=== PATIENT | male | born 1950 | race African-American/Black ===

== ENCOUNTER 2019-01-30 18:35 | Emergency (ER) | payer MEDICARE, OTHER ==
[~2019-01-30] VITALS: Ht 175.3 cm; Wt 111.6 kg
[~2019-01-30 18:35] MED LIST: ACET325T9 PO; ASCO500T2 PO; ASPI-630 PO; ATOR40TA59 PO; CARV25TA PO; CARV6.2541 PO; CEPH-264 PO; CHOL10003 PO; CITA10TA8 PO; CITA20TA6 PO; CLIN300C8 PO; CLON0.25 PO; CLON0.5T PO; DESV100T PO; DESV50TA PO; DIVA500T2 PO; DONE10TA14 PO; DONE10TA61 PO; HYDR-1179 PO; HYDR-3165 PO; INSU100C4 SQ; INSU100V8 SQ; KRIL500C PO; LEVE500T6 PO; LIPITOR80 MG PO; LISI-334 PO; LISI2.5T PO; MECL12.5 PO; MEMA10TA PO; MEMA14CA PO; MEMA28CA PO; MOXI3DRO18 LEFTEYE; MULT-208 PO; NEPA1.7D LEFTEYE; NIAC500T82 PO; NITR0.4T22 SL; NITR50IN IV; OMEG1CAP16 PO; PRED5DRO16 LEFT EAR; PREG150C PO; PREG75CA PO; QUET100T4 PO; QUET300T5 PO; QUET300T7 PO; RANO500T2 PO; SILD20TA2 PO; SILD50TA PO; TRIA1CAP3 PO; TRIA1TAB2 PO; ZOLP10TA4 PO; ZOLP5TAB PO
--- NOTE | 2019-01-30 18:39 | ED.ADGEN ---
Past History Past Medical History: Arthritis, CAD, Cancer, COPD, Depression, Diabetes, High Cholesterol, Hypertension, Migraines, Renal Disease, Seizure, Other Past Surgical History: Cancer Surgery, TURP, Other Smoking: Non-smoker Alcohol Use: None Drug Use: None Adult General Chief Complaint Chief Complaint ".. My legs are bothering to me.. they are swollen... and hurting.. different than my peripheral neuropathy pain.. this leg on Rt. is much more painful.. It just started this morning.. " HPI HPI Patient is a 68 year old male who presents with above hx and complaints leg edema and pain. Patient has known peripheral vascular disease and diabetic peripheral neuropathy. Patient states the pain he's feeling in his legs particularly on the right is not the typical peripheral neuropathy pain he has with his diabetes. Patient states onset of his pain was this morning as persisted throughout the day. Patient also noticed increased edema in both ankles and feet. No obvious infection. Patient does not ever walk perforated always wears she is in the house and outside. Patient denies any trauma. No recent travel or specific ill contacts. Patient then reported compliant with his diabetic, hypertension, and COPD meds. Patient does state water pill.?? Patient denies any history of DVT or coagulopathy. Pt. normally follows with Dr. Solares. Review of Systems Review of Systems Constitutional: Denies fever or chills [] Eyes: Denies change in visual acuity, redness, or eye pain [] HENT: Denies nasal congestion or sore throat [] Respiratory: Denies cough or shortness of breath [] Cardiovascular: No additional information not addressed in HPI [] GI: Denies abdominal pain, nausea, vomiting, bloody stools or diarrhea [] : Denies dysuria or hematuria [] Musculoskeletal: Chronic fibromyalgia pain. Chronic low back pain. And sciatica ,But complains of new pain in his legs and particularly right leg. Integument: Denies rash or skin lesions [] Neurologic: Denies headache, focal weakness or sensory changes [] Endocrine: Denies polyuria or polydipsia [] All other systems were reviewed and found to be within normal limits, except as documented in this note. Family History Family History Diabetes and hypertension Current Medications Current Medications Current Medications Medications (Trade) Dose Ordered Sig/Ena Start Time Stop Time Status Last Admin Dose Admin Aspirin (Children'S Aspirin) 324 mg 1X ONCE 01/30/19 19:30 01/30/19 19:31 DC 01/30/19 19:40 324 MG Enoxaparin Sodium (Lovenox 100mg Syringe) 100 mg 1X ONCE 01/30/19 19:30 01/30/19 19:31 DC 01/30/19 19:41 100 MG Enoxaparin Sodium (Lovenox 60mg Syringe) 60 mg 1X ONCE 01/30/19 21:45 01/30/19 21:46 DC 01/30/19 22:36 60 MG Furosemide (Lasix) 20 mg 1X ONCE 01/30/19 21:45 01/30/19 21:46 DC 01/30/19 22:39 20 MG Ketorolac Tromethamine (Toradol 30mg Vial) 30 mg 1X ONCE 01/30/19 21:45 01/30/19 21:46 DC 01/30/19 22:36 30 MG Allergies Allergies Allergies Coded Allergies Type Severity Reaction Last Updated Verified iodine Allergy Severe 01/06/14 Yes Penicillins Allergy Unknown 12/24/13 No Sulfa (Sulfonamide Antibiotics) Allergy Unknown 12/24/13 No shellfish derived Allergy Unknown 12/24/13 No Physical Exam Physical Exam Constitutional: Moderate acute distress, non-toxic appearance. [] HENT: Normocephalic, atraumatic, bilateral external ears normal, oropharynx moist, no oral exudates, nose normal. [] Eyes: PERRLA, EOMI, conjunctiva normal, no discharge. [] Neck: Normal range of motion, no tenderness, supple, no stridor. [] Cardiovascular:Heart rate regular rhythm, no murmur PMI to the left Lungs & Thorax: Bilateral breath sounds equal apex with scattered wheezes auscultation [] Abdomen: Bowel sounds normal, soft, no tenderness, no masses, no pulsatile masses. []Obese. Skin: Warm, dry, no erythema, no rash. [] Capillary refill decrease in both feet. 3 Seconds. Pt does have pedal pulses Back: No tenderness, no CVA tenderness. [] Old surgery scar Extremities: Bilateral feet and lower leg tenderness, no cyanosis, no clubbing, ROM intact, bilateral lower leg ankle and calf edema. [] Pain does follows lower vein course in rt calf. Neurologic: Alert and oriented X 3, moves all ext. on request, does walk with cane, distal sensory function, decreased plantar sensation, no new gross focal deficits noted. [] Psychologic: Affect anxious, judgement normal, mood normal. [] Current Patient Data Vital Signs Vital Signs Date Time Temp Pulse Resp B/P (MAP) Pulse Ox O2 Delivery O2 Flow Rate FiO2 01/30/19 22:49 78 16 165/97 (119) 96 Room Air 01/30/19 19:05 98.3 Lab Results Laboratory Tests Test 01/30/19 19:20 01/30/19 19:36 01/30/19 22:50 Urine Collection Type Unknown Urine Color Yellow Urine Clarity Clear Urine pH 7.0 Urine Specific [place] 1.020 Urine Protein Neg (NEG-TRACE) Urine Glucose (UA) 250 mg/dL (NEG) Urine Ketones (Stick) Neg mg/dL (NEG) Urine Blood Small (NEG) Urine Nitrite Neg (NEG) Urine Bilirubin Neg (NEG) Urine Urobilinogen Dipstick 4 mg/dL (0.2 mg/dL) Urine Leukocyte Esterase Neg (NEG) Urine RBC 3-5 /HPF (0-2) Urine WBC 1-4 /HPF (0-4) Urine Squamous Epithelial Cells Occ /LPF Urine Bacteria 0 /HPF (0-FEW) Urine Mucus Slight /LPF Urine Opiates Screen Neg (NEG) Urine Methadone Screen Neg (NEG) Urine Barbiturates Neg (NEG) Urine Phencyclidine Screen Neg (NEG) Urine Amphetamine/Methamphetamine Neg (NEG) Urine Benzodiazepines Screen Neg (NEG) Urine Cocaine Screen Neg (NEG) Urine Cannabinoids Screen Neg (NEG) Urine Ethyl Alcohol Neg (NEG) White Blood Count 6.3 x10^3/uL (4.0-11.0) Red Blood Count 4.29 x10^6/uL (4.30-5.70) L Hemoglobin 14.2 g/dL (13.0-17.5) Hematocrit 43.7 % (39.0-53.0) Mean Corpuscular Volume 102 fL (79-100) H Mean Corpuscular Hemoglobin 33 pg (25-35) Mean Corpuscular Hemoglobin Concent 33 g/dL (31-37) Red Cell Distribution Width 14.0 % (11.5-14.5) Platelet Count 251 x10^3/uL (140-400) Neutrophils (%) (Auto) 60 % (31-73) Lymphocytes (%) (Auto) 30 % (24-48) Monocytes (%) (Auto) 8 % (0-9) Eosinophils (%) (Auto) 2 % (0-3) Basophils (%) (Auto) 0 % (0-3) Neutrophils # (Auto) 3.8 x10^3uL (1.8-7.7) Lymphocytes # (Auto) 1.9 x10^3/uL (1.0-4.8) Monocytes # (Auto) 0.5 x10^3/uL (0.0-1.1) Eosinophils # (Auto) 0.1 x10^3/uL (0.0-0.7) Basophils # (Auto) 0.0 x10^3/uL (0.0-0.2) Prothrombin Time 11.7 SEC (9.4-11.4) H Prothrombin Time INR 1.1 (0.9-1.1) PTT 24 SEC (23-33) D-Dimer (Rachell) 0.79 mg/L (0.00-0.50) H Sodium Level 139 mmol/L (136-145) Potassium Level 3.8 mmol/L (3.5-5.1) Chloride Level 104 mmol/L (98-107) Carbon Dioxide Level 26 mmol/L (21-32) Anion Gap 9 (6-14) Blood Urea Nitrogen 11 mg/dL (8-26) Creatinine 1.2 mg/dL (0.7-1.3) Estimated GFR (Cockcroft-Gault) 72.9 Glucose Level 162 mg/dL (70-99) H Calcium Level 8.8 mg/dL (8.5-10.1) Magnesium Level 2.0 mg/dL (1.8-2.4) Total Bilirubin 0.4 mg/dL (0.2-1.0) Direct Bilirubin 0.1 mg/dL (0.0-0.2) Aspartate Amino Transferase (AST) 12 U/L (15-37) L Alanine Aminotransferase (ALT) 23 U/L (16-63) Alkaline Phosphatase 63 U/L (46-116) Creatine Kinase 79 U/L (39-308) Creatine Kinase MB (Mass) < 0.5 ng/mL (0.0-3.6) Creatine Kinase MB Relative Index 0.6 % (0-4) Troponin I Quantitative < 0.017 ng/mL (0-0.055) < 0.017 ng/mL (0-0.055) RA-Tve-A-Type Natriuretic Peptide 180 pg/mL (0-124) H Total Protein 7.8 g/dL (6.4-8.2) Albumin 3.7 g/dL (3.4-5.0) Lipase 182 U/L (73-393) EKG EKG My interpretation EKG shows a sinus rhythm at 76 bpm. Does have occasional premature atrial contraction. Has left ventricular hypertrophic changes. Some nonspecific anterior lateral changes. No findings of acute STEMI of contra lateral changes.[] No interval changes on repeat EKG Radiology/Procedures Radiology/Procedures [address] [address] IMAGING REPORT Signed PATIENT: HECTOR ESQUIVEL ACCOUNT: [id number] : 1950 LOCATION: ER AGE: 68 SEX: M EXAM STATUS: REG ER ORD. PHYSICIAN: JUAN PABLO MERCER MD REASON: increase edema and pain- PROCEDURE: VENOUS LOWER EXT BILATERAL Bilateral lower extremity venous ultrasound, : History: Bilateral lower extremity swelling, CHF, renal disease Sonographic evaluation including grayscale, color flow and spectral Doppler analysis of the deep veins of the lower extremities was performed. The femoral and popliteal veins demonstrate normal compressibility and normal responses to distal augmentation maneuvers. Color imaging of those vessels shows no evidence of intraluminal clot. The visualized deep veins in both calves are patent. IMPRESSION: There is no sonographic evidence of deep vein thrombosis in either lower extremity. Electronically signed by: Ward Ewing MD (01/30/2019 8:46 PM) [facility] DICTATED AND SIGNED BY: WARD EWING MD DATE: 01/30/192045 CC: JUAN PABLO MERECR MD; RAJANI REBOLLEDO MD ~ [][address] [address] IMAGING REPORT Signed PATIENT: HECTOR ESQUIVEL ACCOUNT: [id number] : 1950 LOCATION: ER AGE: 68 SEX: M EXAM STATUS: REG ER ORD. PHYSICIAN: JUAN PABLO MERCER MD REASON: Extremity swelling, CHF, COPD PROCEDURE: PORTABLE CHEST 1V AP chest. HISTORY: Extremity swelling, CHF, COPD AP view was taken of the chest. Lungs are clear. Heart is normal in size. There is an old left rib fracture. There is no effusion. IMPRESSION: 1. No acute chest disease. Electronically signed by: Ward Ewing MD (01/30/2019 7:53 PM) [facility] DICTATED AND SIGNED BY: WARD EWING MD DATE: 01/30/191952 CC: JUAN PABLO MERCER MD; RAJANI REBOLLEDO MD ~ Course & Med Decision Making Course & Med Decision Making Pertinent Labs and Imaging studies reviewed. (See chart for details) I still have concerns for a DVT in spite of a negative ultrasound. Will cover for DVT with Lovenox next 24 hours and initiate Eliquis 5 mg twice day. Patient follow-up primary care. Consider repeat ultrasound after 24-48 hours. Patient return if any concerns. Consider Arterial study on repeat US study in 24 hrs. - 48 hrs. Pt. to return if any concerns. [] Final Impression Final Impression 1. Leg Pain and Edema[] 2. DM gluc. 162 3. Macrocytic Indice 102 4. Elevated D-dimer 0.79 5. Peripheral Neuropathy 6. Peripheral Vascular Dz Dragon Disclaimer Dragon Disclaimer This electronic medical record was generated, in whole or in part, using a voice recognition dictation system. Discharge Summary Visit Information Final Diagnosis Problems Medical Problems: (1) Leg edema Status: Acute Brief Hospital Course Allergies Allergies Coded Allergies Type Severity Reaction Last Updated Verified iodine Allergy Severe 01/06/14 Yes Penicillins Allergy Unknown 12/24/13 No Sulfa (Sulfonamide Antibiotics) Allergy Unknown 12/24/13 No shellfish derived Allergy Unknown 12/24/13 No Vital Signs Vital Signs Date Time Temp Pulse Resp B/P (MAP) Pulse Ox O2 Delivery O2 Flow Rate FiO2 01/30/19 22:49 78 16 165/97 (119) 96 Room Air 01/30/19 19:05 98.3 Lab Results Laboratory Tests Test 01/30/19 19:20 01/30/19 19:36 01/30/19 22:50 Urine Collection Type Unknown Urine Color Yellow Urine Clarity Clear Urine pH 7.0 Urine Specific [place] 1.020 Urine Protein Neg (NEG-TRACE) Urine Glucose (UA) 250 mg/dL (NEG) Urine Ketones (Stick) Neg mg/dL (NEG) Urine Blood Small (NEG) Urine Nitrite Neg (NEG) Urine Bilirubin Neg (NEG) Urine Urobilinogen Dipstick 4 mg/dL (0.2 mg/dL) Urine Leukocyte Esterase Neg (NEG) Urine RBC 3-5 /HPF (0-2) Urine WBC 1-4 /HPF (0-4) Urine Squamous Epithelial Cells Occ /LPF Urine Bacteria 0 /HPF (0-FEW) Urine Mucus Slight /LPF Urine Opiates Screen Neg (NEG) Urine Methadone Screen Neg (NEG) Urine Barbiturates Neg (NEG) Urine Phencyclidine Screen Neg (NEG) Urine Amphetamine/Methamphetamine Neg (NEG) Urine Benzodiazepines Screen Neg (NEG) Urine Cocaine Screen Neg (NEG) Urine Cannabinoids Screen Neg (NEG) Urine Ethyl Alcohol Neg (NEG) White Blood Count 6.3 x10^3/uL (4.0-11.0) Red Blood Count 4.29 x10^6/uL (4.30-5.70) Hemoglobin 14.2 g/dL (13.0-17.5) Hematocrit 43.7 % (39.0-53.0) Mean Corpuscular Volume 102 fL (79-100) Mean Corpuscular Hemoglobin 33 pg (25-35) Mean Corpuscular Hemoglobin Concent 33 g/dL (31-37) Red Cell Distribution Width 14.0 % (11.5-14.5) Platelet Count 251 x10^3/uL (140-400) Neutrophils (%) (Auto) 60 % (31-73) Lymphocytes (%) (Auto) 30 % (24-48) Monocytes (%) (Auto) 8 % (0-9) Eosinophils (%) (Auto) 2 % (0-3) Basophils (%) (Auto) 0 % (0-3) Neutrophils # (Auto) 3.8 x10^3uL (1.8-7.7) Lymphocytes # (Auto) 1.9 x10^3/uL (1.0-4.8) Monocytes # (Auto) 0.5 x10^3/uL (0.0-1.1) Eosinophils # (Auto) 0.1 x10^3/uL (0.0-0.7) Basophils # (Auto) 0.0 x10^3/uL (0.0-0.2) Prothrombin Time 11.7 SEC (9.4-11.4) Prothromb Time International Ratio 1.1 (0.9-1.1) Activated Partial Thromboplast Time 24 SEC (23-33) D-Dimer (Rachell) 0.79 mg/L (0.00-0.50) Sodium Level 139 mmol/L (136-145) Potassium Level 3.8 mmol/L (3.5-5.1) Chloride Level 104 mmol/L (98-107) Carbon Dioxide Level 26 mmol/L (21-32) Anion Gap 9 (6-14) Blood Urea Nitrogen 11 mg/dL (8-26) Creatinine 1.2 mg/dL (0.7-1.3) Estimated GFR (Cockcroft-Gault) 72.9 Glucose Level 162 mg/dL (70-99) Calcium Level 8.8 mg/dL (8.5-10.1) Magnesium Level 2.0 mg/dL (1.8-2.4) Total Bilirubin 0.4 mg/dL (0.2-1.0) Direct Bilirubin 0.1 mg/dL (0.0-0.2) Aspartate Amino Transf (AST/SGOT) 12 U/L (15-37) Alanine Aminotransferase (ALT/SGPT) 23 U/L (16-63) Alkaline Phosphatase 63 U/L (46-116) Creatine Kinase 79 U/L (39-308) Creatine Kinase MB (Mass) < 0.5 ng/mL (0.0-3.6) Creatine Kinase MB Relative Index 0.6 % (0-4) Troponin I Quantitative < 0.017 ng/mL (0-0.055) < 0.017 ng/mL (0-0.055) KD-Jjs-L-Type Natriuretic Peptide 180 pg/mL (0-124) Total Protein 7.8 g/dL (6.4-8.2) Albumin 3.7 g/dL (3.4-5.0) Lipase 182 U/L (73-393) Brief Hospital Course Mr. Esquivel is a 68 old male who presented with bilateral lower leg pain, edema. Pain more on Rt. . No DVT found on tonight US. Consider Repeat US and arterial Doppler study after 24-48 hours. Discharge Information Condition at Discharge: Improved, Stable Disposition/Orders: D/C to Home Dischare Medications Current Medications Aspirin (Children'S Aspirin) 324 mg 1X ONCE PO Last administered on 01/30/19at 19:40; Admin Dose 324 MG; Start 01/30/19 at 19:30; Stop 01/30/19 at 19:31; Status DC Furosemide (Lasix) 20 mg 1X ONCE IV ; Start 01/30/19 at 19:30; Stop 01/30/19 at 19:30; Status DC Enoxaparin Sodium (Lovenox 100mg Syringe) 100 mg 1X ONCE SQ Last administered on 01/30/19at 19:41; Admin Dose 100 MG; Start 01/30/19 at 19:30; Stop 01/30/19 at 19:31; Status DC Furosemide (Lasix) 20 mg 1X ONCE IVP Last administered on 01/30/19at 19:42; Admin Dose 20 MG; Start 01/30/19 at 19:30; Stop 01/30/19 at 19:31; Status DC Ketorolac Tromethamine (Toradol 30mg Vial) 30 mg 1X ONCE IV Last administered on 01/30/19at 22:36; Admin Dose 30 MG; Start 01/30/19 at 21:45; Stop 01/30/19 at 21:46; Status DC Enoxaparin Sodium (Lovenox 60mg Syringe) 60 mg 1X ONCE SQ Last administered on 01/30/19at 22:36; Admin Dose 60 MG; Start 01/30/19 at 21:45; Stop 01/30/19 at 21:46; Status DC Furosemide (Lasix) 20 mg 1X ONCE IVP Last administered on 01/30/19at 22:39; Admin Dose 20 MG; Start 01/30/19 at 21:45; Stop 01/30/19 at 21:46; Status DC Active Scripts Active Eliquis (Apixaban) 5 Mg Tablet 5 Mg PO BID 30 Days Hydrocodone-Ibuprofen 7.5-200 (Hydrocodone/Ibuprofen) 1 Each Tablet 1 Tab PO PRN Q6HRS PRN Clindamycin Hcl 300 Mg Capsule 1 Cap PO TID Depakote (Divalproex Sodium) 500 Mg Tablet. 1 Tab PO BID Hydrocodone-Ibuprofen 7.5-200 (Hydrocodone/Ibuprofen) 1 Each Tablet 30 Tab PO PRN Q6HRS PRN [place] 5-325 Tablet (Hydrocodone Bit/Acetaminophen) 1 Each Tablet 1 Tab PO PRN Q6HRS PRN Reported Ilevro (Nepafenac) 1.7 Ml Drops.susp 1 Drop LEFTEYE DAILY use daily for a total of 3 weeks Prednisolone Acetate 5 Ml Drops.susp 1 Drop LEFT EAR TID use 2 x today then starting tomorrow 3 x daily till gone Vigamox (Moxifloxacin Hcl) 3 Ml Drops 1 Drop LEFTEYE TID use 2 x today then starting tomorrow 3 x daily till gone Lyrica (Pregabalin) 75 Mg Capsule 1 Cap PO BID Namenda Xr (Memantine Hcl) 28 Mg Cap.spr.24 28 Mg PO Vitamin D3 (Cholecalciferol (Vitamin D3)) 1,000 Unit Tablet 2 Tab PO DAILY Tylenol (Acetaminophen) 325 Mg Tablet 1-2 Tab PO QID Vitamin C (Ascorbic Acid) 500 Mg Tablet 500 Mg PO Pristiq Er (Desvenlafaxine Succinate) 100 Mg Tab.er.24h 1 Tab PO DAILY Klonopin (Clonazepam) 0.5 Mg Tablet 0.5 Mg PO PRN PRN Ambien (Zolpidem Tartrate) 5 Mg Tablet 1 Tab PO QHS PRN Viagra (Sildenafil Citrate) 50 Mg Tablet 1 Tab PO UD Lipitor (Atorvastatin Calcium) 80 Mg Tablet 1 Tab PO DAILY Multi-Day Vitamins (Multivitamin) 1 Each Tablet 1 Tab PO DAILY Levetiracetam 500 Mg Tablet 1 Tab PO BID Lantus (Insulin Glargine,Hum.rec.anlog) 100 Unit/1 Ml Vial 20 Unit SQ HS LAST DOSE; 01/07 AT 9 PM NEXT DOSE; 01/08 AT 9 PM Novolog (Insulin Aspart) 100 Unit/1 Ml Cartridge 10 Unit SQ TIDAC LAST DOSE; 01/08 AT 0900 NEXT DOSE; 01/08 AT 1200 Fish Oil 1,000 Mg Softgel ([place]-3 Fatty Acids/Fish Oil) 1 Each Capsule 1 Each PO DAILY LAST DOSE; 01/08 AT 9 AM NEXT DOSE; 01/09 AT 9 AM NITROGLYCERIN SubLingual (Nitroglycerin) 0.4 Mg Tab.subl 0.4 Mg SL PRN Q5MIN PRN LAST DOSE; NEXT DOSE; IF NEEDED Vitamin C (Ascorbic Acid) 500 Mg Tablet 500 Mg PO DAILY LAST DOSE; 01/08 AT 9 AM NEXT DOSE; 01/08 AT 9 AM Aricept (Donepezil Hcl) 10 Mg Tablet 10 Mg PO DAILY LAST DOSE; 01/08 AT 9 AM NEXT DOSE; 01/09 AT 9 AM Niacin Er (Niacin) 500 Mg Tab.er.24h 1,000 Mg PO DAILY LAST DOSE; 01/08 AT 9 AM NEXT DOSE; 01/09 AT 9 AM Aspirin 81 Mg Tab.chew 81 Mg PO DAILY LAST DOSE; 01/08 AT 9 AM NEXT DOSE; 01/08 AT 9 AM Ranexa (Ranolazine) 500 Mg Tab.er.12h 1,000 Mg PO BID LAST DOSE; 01/08 AT 8AM NEXT DOSE; 01/08 AT Bedtime Citalopram Hbr (Citalopram Hydrobromide) 20 Mg Tablet 40 Mg PO LAST DOSE; 01/08 AT 9 AM NEXT DOSE; 01/09 AT 9 AM Yoandy Disclaimer This chart was dictated in whole or in part using Voice Recognition software in a busy, high-work load, and often noisy Emergency Department environment. It may contain unintended and wholly unrecognized errors or omissions. JUAN PABLO MERCER MD Jan 30, 2019 18:39
[2019-01-30] MEDS ORDERED: ASPIRIN 81 MG TAB.CHEW PO ONE (19:30)
[2019-01-30] MEDS ORDERED: FUROSEMIDE 20 MG/2 ML VIAL IV ONE (19:30)
[2019-01-30] MEDS ORDERED: ENOXAPARIN ** NOTE DOSE ** SYRINGE SQ ONE ×2 (19:30→21:45)
[2019-01-30] MEDS ORDERED: FUROSEMIDE 40 MG/4 ML VIAL IVP ONE ×2 (19:30→21:45)
--- NOTE | 2019-01-30 19:56 | RAD ---
AP chest. HISTORY: Extremity swelling, CHF, COPD AP view was taken of the chest. Lungs are clear. Heart is normal in size. There is an old left rib fracture. There is no effusion. IMPRESSION: 1. No acute chest disease. Electronically signed by: Ward Ewing MD (01/30/2019 7:53 PM) [facility]
[2019-01-30 19:57] LABS: BASO % 0 % (0-3); EOS # 0.1 x10^3/uL (0.0-0.7); EOS % 2 % (0-3); HEMATOCRIT 43.7 % (39.0-53.0); HEMOGLOBIN 14.2 g/dL (13.0-17.5); LYMPH # 1.9 x10^3/uL (1.0-4.8); LYMPH % 30 % (24-48); MEAN CORPUSCULAR HEMOGLOBIN 33 pg (25-35); MEAN CORPUSCULAR HGB CONC 33 g/dL (31-37); MEAN CORPUSCULAR VOLUME 102 fL (79-100); MONO # 0.5 x10^3/uL (0.0-1.1); MONO % 8 % (0-9); NEUT # 3.8 x10^3uL (1.8-7.7); NEUT % 60 % (31-73); PLATELET COUNT 251 x10^3/uL (140-400); RED BLOOD COUNT 4.29 x10^6/uL (4.30-5.70); WHITE BLOOD COUNT 6.3 x10^3/uL (4.0-11.0)
[2019-01-30 20:20] LABS: ALBUMIN 3.7 g/dL (3.4-5.0); ALK PHOS 63 U/L (46-116); ALT (SGPT) 23 U/L (16-63); ANION GAP 9 (6-14); AST (SGOT) 12 U/L (15-37); BLOOD UREA NITROGEN 11 mg/dL (8-26); CALCIUM 8.8 mg/dL (8.5-10.1); CARBON DIOXIDE 26 mmol/L (21-32); CHLORIDE 104 mmol/L (98-107); CREATININE 1.2 mg/dL (0.7-1.3); DIRECT BILIRUBIN 0.1 mg/dL (0.0-0.2); GFR 72.9; GLUCOSE 162 mg/dL (70-99); LIPASE 182 U/L (73-393); POTASSIUM 3.8 mmol/L (3.5-5.1); SODIUM 139 mmol/L (136-145); TOTAL BILIRUBIN 0.4 mg/dL (0.2-1.0); TOTAL PROTEIN 7.8 g/dL (6.4-8.2)
[2019-01-30 20:39] LABS: AMPHETAMINE/METHAMPHETAMINE NEG (NEG); BARBITURATES NEG (NEG); BENZODIAZEPINES NEG (NEG); CANNABINOIDS NEG (NEG); COCAINE NEG (NEG); METHADONE NEG (NEG); OPIATES NEG (NEG); PHENCYCLIDINE NEG (NEG)
--- NOTE | 2019-01-30 20:49 | RAD ---
Bilateral lower extremity venous ultrasound, : History: Bilateral lower extremity swelling, CHF, renal disease Sonographic evaluation including grayscale, color flow and spectral Doppler analysis of the deep veins of the lower extremities was performed. The femoral and popliteal veins demonstrate normal compressibility and normal responses to distal augmentation maneuvers. Color imaging of those vessels shows no evidence of intraluminal clot. The visualized deep veins in both calves are patent. IMPRESSION: There is no sonographic evidence of deep vein thrombosis in either lower extremity. Electronically signed by: Ward Ewing MD (01/30/2019 8:46 PM) [facility]
[2019-01-30 20:51] LABS: BACTERIA,URINE 0 /HPF (0-FEW); BILIRUBIN,URINE NEG (NEG); CLARITY,URINE CLEAR; COLOR,URINE YELLOW; GLUCOSE,URINE 250 mg/dL (NEG); NITRITE,URINE NEG (NEG); SQUAMOUS EPITHELIAL CELL,UR OCC /LPF; UROBILINOGEN,URINE 4 mg/dL (0.2 mg/dL)
[2019-01-30] MEDS ORDERED: HYDR-1179 PO (21:16)
[2019-01-30] MEDS ORDERED: APIX5TAB3 PO (21:16)
[2019-01-30] MEDS ORDERED: KETOROLAC 30 MG/ML VIAL. IV ONE (21:45)
[2019-01-30 23:45] VITALS: BP 155/83
[2019-02-01 00:10] LABS: HEMOGLOBIN A1C 7.5 % (4.8-5.6)
== END 2019-01-30 23:45 | disposition home or self-care (01) ==
LOC: ER 18:35
DX: R60.0 Localized edema (principal); M79.604 Pain in right leg; E11.42 Type 2 diabetes mellitus with diabetic polyneuropathy; I73.9 Peripheral vascular disease, unspecified; R79.1 Abnormal coagulation profile; D53.9 Nutritional anemia, unspecified; M19.90 Unspecified osteoarthritis, unspecified site; I25.10 Atherosclerotic heart disease of native coronary artery without angina pectoris; J44.9 Chronic obstructive pulmonary disease, unspecified; E78.00 Pure hypercholesterolemia, unspecified; I10 Essential (primary) hypertension; G43.909 Migraine, unspecified, not intractable, without status migrainosus; I12.9 Hypertensive chronic kidney disease with stage 1 through stage 4 chronic kidney disease, or unspecified chronic kidney disease; E11.22 Type 2 diabetes mellitus with diabetic chronic kidney disease; N18.9 Chronic kidney disease, unspecified; Z88.8 Allergy status to other drugs, medicaments and biological substances; Z88.2 Allergy status to sulfonamides; Z88.0 Allergy status to penicillin; Z91.013 Allergy to seafood
CPT/HCPCS: 36415; 71045; 80048; 80076; 80307; 81001; 82553; 83036; 83690; 83735; 83880; 84443; 84484; 85025; 85379; 85610; 85730; 93005; 93970; 96372; 96374; 96375; 96376; 99285; J1650; J1885; J1940

== ENCOUNTER → 2019-02-17 | Outpatient (CLI) | payer MEDICARE, OTHER ==
[2019-01-30 23:45] VITALS: BP 155/83
[~2019-02-17] MED LIST changes: +APIX5TAB3 PO
--- NOTE | 2019-02-17 14:43 | RAD ---
EXAM: Right lower extremity venous Doppler sonogram. HISTORY: Pain. TECHNIQUE: Arroyo scale and color Doppler sonographic evaluation of the right lower extremity veins with spectral waveform analysis was performed. FINDINGS: The right peroneal vein is partially obscured. There is normal color flow, normal compressibility and there are normal spectral waveforms in the remainder of the lower extremity veins. IMPRESSION: No Doppler evidence of lower extremity deep venous thrombosis with limited evaluation of the peroneal vein. Electronically signed by: Rebeka Cole MD (02/17/2019 2:40 PM) [place] [id number]
--- NOTE | 2019-02-17 15:26 | RAD ---
Exam performed: X-ray right foot and right ankle. HISTORY: Pain and swelling. DATE OF SERVICE: 02/17/2019. COMPARISON: None available FINDINGS: Right foot: Normal alignment is preserved. There is no acute fracture or dislocation. There is a small plantar calcaneal spur. Extensive soft tissue swelling is identified. Right ankle: Normal alignment of the ankle mortise is preserved. There is no acute fracture or dislocation. Small plantar calcaneal spur. Extensive soft tissue swelling is noted. IMPRESSION: 1. Diffuse soft tissue swelling around the right foot without underlying acute bony abnormality. 2. Small plantar calcaneal spur. 3. Diffuse soft tissue swelling around the right ankle without underlying acute bony abnormality Electronically signed by: Medina Beck MD (02/17/2019 3:23 PM) [facility]
== END | disposition home or self-care (01) ==
LOC: US 14:07
PROVIDERS: ATTEND Specialist
DX: M77.31 Calcaneal spur, right foot (principal); M79.89 Other specified soft tissue disorders
CPT/HCPCS: 73610; 73630; 93971

== ENCOUNTER 2020-04-24 22:36 | Emergency (ER) | payer MEDICARE, OTHER ==
[~2020-04-24] VITALS: Ht 177.8 cm; Wt 118.2 kg
[~2020-04-24 22:36] MED LIST changes: -ASCO500T2 PO; +ASCO500T4 PO
[2020-04-24 22:45] VITALS: BP 135/71
--- NOTE | 2020-04-24 22:47 | PHYS DOC ---
Past History Past Medical History: Arthritis, CAD, Cancer, CHF, COPD, Depression, Diabetes, High Cholesterol, Hypertension, Migraines, Renal Disease, Seizure, Other Past Surgical History: Cancer Surgery, TURP, Other Smoking: Non-smoker Alcohol Use: Occasionally Drug Use: None General Adult HPI: HPI: ".. They sent me in to get check out.. I was up going to bathroom... yesterday.. and I tripped and hit my forehead on the table.... It did nt knock me out.. but did stun me.. but.. my family all over my case to come and get check out.. they all think I got COVID.. and want me to get re tested.. I ve like had 3 COVID tests.. they have been all negative.. I did have some fevers.. and I do have a little cough.. but I always cough.. it my COPD.. yes.. I am still smoking.. I just here to make everyone happy.. :' I think they just want me out of their hair.. " Patient is a 69 year old male who presents with above hx and complaints fever, cough with dyspnea. Hx fall yesterday and hit fore head yesterday. No history of loss of consciousness. Has been ambulatory since the fall. Patient does admit to having subjective fevers, cough and malaise. Patient denies any specific COVID contacts. No recent travel outside the [place] area. Advice he has had prior COVID testing with all been negative. Patient has past history of episodes of hypertension, chronic renal failure, dehydration, diabetes, dementia, Hodgkin's Lymphoma, , dental abscess, esophageal strictures, hypertension tension, DVTs, pulmonary embolisms, pneumonia, COPD , noncompliant with medical regimens, depression with multiple suicide attempts. Patient still smokes tobacco.. Patient advised he is not on any current anticoagulation. Pt. currently following Dr. Jasso. Review of Systems: Review of Systems: Constitutional: Hx of fever Eyes: Denies change in visual acuity HENT: Denies nasal congestion or sore throat . Hx Head Injury yesterday Respiratory: Hx of cough and shortness of breath Cardiovascular: Denies chest pain or edema GI: Denies abdominal pain, nausea, vomiting, bloody stools or diarrhea : Denies dysuria Musculoskeletal: Denies back pain or joint pain Integument: Denies rash Neurologic: Denies headache, focal weakness or sensory changes Endocrine: Denies polyuria or polydipsia Lymphatic: Denies swollen glands Psychiatric: Denies depression or anxiety Heart Score: HEART Score for Chest Pain: HEART Score for Chest Pain Response (Comments) Value History Moderately Suspicious 1 ECG Nonspecific Repolarizatio 1 Age > 65 2 Risk Factors 1 or 2 Risk Factors 1 Troponin < Normal Limit 0 Total 5 Risk Factors: Risk Factors: DM, Current or recent (<one month) smoker, HTN, HLP, family history of CAD, obesity. Risk Scores: Score 0 - 3: 2.5% MACE over next 6 weeks - Discharge Home Score 4 - 6: 20.3% MACE over next 6 weeks - Admit for Clinical Observation Score 7 - 10: 72.7% MACE over next 6 weeks - Early Invasive Strategies Family History: Family History: Noncontributory to presentation Current Medications: Current Meds: See nursing for home meds Allergies: Allergies: Allergies Coded Allergies Type Severity Reaction Last Updated Verified iodine Allergy Severe 01/06/14 Yes Penicillins Allergy Unknown 12/24/13 No Sulfa (Sulfonamide Antibiotics) Allergy Unknown 12/24/13 No shellfish derived Allergy Unknown 12/24/13 No Physical Exam: PE: Constitutional: no acute distress, non-toxic appearance. [] HENT: Normocephalic, contusion left forehead, bilateral external ears normal, oropharynx moist, no oral exudates, nose normal. [] Eyes: PERRLA, EOMI, conjunctiva normal, no discharge. [] Neck: Normal range of motion, mild cervical tenderness, supple, no stridor. [] Cardiovascular: Tachycardia heart rate regular rhythm, no murmur [], PMI to the left Lungs & Thorax: Bilateral breath sounds equal at apex with scattered wheezing throughout on auscultation [] old surgery port scars Abdomen: Bowel sounds normal, soft, no tenderness, no masses, no pulsatile masses. Obese. Old surgical scars Skin: Warm, dry, no erythema, no rash. Poor turgor. Back: No tenderness, no CVA tenderness. [] Extremities: No tenderness, no cyanosis, no clubbing, ROM intact, bilateral ankle edema. [] No cording appreciated Neurologic: Alert and oriented X 3, moves all extremities on request, does have distal sensory, no focal deficits noted. [] Psychologic: Affect flat, judgement normal, mood normal. Denies suicidal or homicidal ideation. Does admit that he sometimes gets depressed EKG: EK interpretation EKG shows a sinus tachycardia 101 bpm. Does have left atrial possible P waves. Left axis, and nonspecific T wave changes anterior leads. Low voltage in lead II [] Radiology/Procedures: Radiology/Procedures: [address] [address] IMAGING REPORT Signed PATIENT: HECTOR ESQUIVEL ACCOUNT: [id number] : 1950 LOCATION: ER AGE: 69 SEX: M EXAM STATUS: REG ER ORD. PHYSICIAN: JUAN PABLO MERCER MD REASON: dyspnea, fever PROCEDURE: PORTABLE CHEST 1V AP chest x-ray HISTORY: Dyspnea, fever. COMPARISON: Chest x-ray January 30, 2019. FINDINGS: Mild cardiomegaly stable. Mediastinal silhouette is unremarkable. No pneumothorax, pulmonary opacities or pleural effusions. Old healed left rib fracture deformities again demonstrated. IMPRESSION: No acute process. Stable exam. Electronically signed by: Kaylee Mackay MD (04/24/2020 11:53 PM) [facility] DICTATED AND SIGNED BY: KAYLEE MACKAY MD DATE: 04/24/20 607 CC: JUAN PABLO MERCER MD; RAJANI JASSO MD ~ [[address] [address] IMAGING REPORT Signed PATIENT: HECTOR ESQUIVEL ACCOUNT: [id number] : 1950 LOCATION: ER AGE: 69 SEX: M EXAM STATUS: REG ER ORD. PHYSICIAN: JUAN PABLO MERCER MD REASON: fell hit head, syncoe, black out PROCEDURE: CT HEAD AND CERVICAL SPINE WO STUDY: CT head and cervical spine without contrast INDICATION: Fall. Syncope. Trauma to the head. COMPARISON: 08/25/2016 TECHNIQUE: Axial CT imaging through the head and cervical spine without the use of intravenous contrast. Sagittal and coronal reformats were obtained. One or more of the following individualized dose reduction techniques were utilized for this examination: 1. Automated exposure control 2. Adjustment of the mA and/or kV according to patient size 3. Use of iterative reconstruction technique. FINDINGS: CT head: No acute intracranial hemorrhage. Arroyo-white matter differentiation is maintained. No mass effect, midline shift or hydrocephalus. Patchy and confluent bihemispheric subcortical/periventricular white matter hypoattenuation is nonspecific but most frequently seen in the setting of chronic microvascular ischemic change. Parenchymal volume loss and intracranial atherosclerotic calcifications. No large scalp hematoma is apparent by CT. No depressed calvarial fracture. CT cervical spine: Limited evaluation below C5 due to beam attenuation. Taking the above into consideration, no acute fracture or traumatic malalignment. Partial opacification of the left mastoid air cells but no fracture seen in this region. Scattered degenerative changes with discogenic arthrosis most pronounced at C6-C7. Uncovertebral joint hypertrophy greatest at this level as well. Osseous neural foraminal encroachment most notable along the right more so than left at C6-C7. No severe central canal stenosis is readily apparent. No soft tissue sequela of trauma seen throughout the neck. Scattered vascular calcifications. No apical pneumothorax. IMPRESSION: CT head: 1. No acute intracranial abnormality by CT. 2. Chronic/senescent findings as detailed above. CT cervical spine: 1. No acute fracture. 2. Multifactorial degenerative changes greatest at C6-C7. Electronically signed by: CAYLA ROMERO MD (04/24/2020 11:43 PM) [id number] DICTATED AND SIGNED BY: CAYLA ROMERO MD DATE: 04/24/20 0823 CC: JUAN PABLO MERCER MD; RAJANI JASSO MD ~ ][address] [address] IMAGING REPORT Signed PATIENT: HECTOR ESQUIVEL ACCOUNT: [id number] : 1950 LOCATION: ER AGE: 69 SEX: M EXAM STATUS: REG ER ORD. PHYSICIAN: JUAN PABLO MERCER MD REASON: dyspnea, fever PROCEDURE: PORTABLE CHEST 1V AP chest x-ray HISTORY: Dyspnea, fever. COMPARISON: Chest x-ray January 30, 2019. FINDINGS: Mild cardiomegaly stable. Mediastinal silhouette is unremarkable. No pneumothorax, pulmonary opacities or pleural effusions. Old healed left rib fracture deformities again demonstrated. IMPRESSION: No acute process. Stable exam. Electronically signed by: Kaylee Mackay MD (04/24/2020 11:53 PM) [facility] DICTATED AND SIGNED BY: KAYLEE MACKAY MD DATE: 04/24/20 5207 CC: JUAN PABLO MERCER MD; RAJANI JASSO MD ~ Course & Med Decision Making: Course & Med Decision Making Pertinent Labs and Imaging studies reviewed. (See chart for details) Reviewed with patient labs chest x-rays and CTs. Patient elects to be discharged home. Discussed with patient his elevated d-dimer and some questionable areas on chest x-ray. Suspect this is most likely a viral presentation but will cover for atypical pneumonia, bronchitis and COPD exacerbation. Will start on Zithromax. Patient's previous history of DVTs and possible COVID infection will start anticoagulation. Patient to start on Xarelto 15 mg twice daily and then after 21 days start 20 mg a day. Patient push fluids. Patient take Tylenol ibuprofen as needed for pain. Patient follow-up with primary care. Patient return if any concerns. Patient must self isolate. Wear a mask in contact of others that covers both his nose and mouth. Consider retesting for COVID after completing a 10-day isolation. To see if he is shedding virus after isolation.. No clinical usefulness for CO VID testing at this time, would treat as if he does have COVID [id number], distancing, wearing a mask, frequent handwashing etc. encourage patient to stop smoking. Impression: 1. COPD/emphysema exacerbation 2. Viral presentation 3. Mild hypo-natremia 132 4. Chronic renal insufficiency creatinine 1.7 5. Diabetes history of poor control-current glucose 191 6. Elevated d-dimer 3.09 7. Tobacco abuse [] Dragon Disclaimer: Dragon Disclaimer: This electronic medical record was generated, in whole or in part, using a voice recognition dictation system. Departure Departure: Disposition: 01 HOME/RESIDENCE PRIOR TO ADM Condition: STABLE Referrals: RAJANI JASSO MD (PCP) Scripts Ondansetron Hcl (ZOFRAN) 8 Mg Tablet 8 MG PO QIDPRN PRN for nv, #30 BOT Prov: JUAN PABLO MERCER MD 04/25/20 Azithromycin (ZITHROMAX) 250 Mg Tablet 250 MG PO DAILY for ANTI-BIOTIC for 10 Days, #10 TAB 0 Refills Prov: JUAN PABLO MERCER MD 04/25/20 Rivaroxaban (XARELTO) 20 Mg Tablet 20 MG PO DAILY for pe, dvt for 90 Days, #90 TAB Prov: JUAN PABLO MERCER MD 04/25/20 Rivaroxaban (XARELTO) 15 Mg Tablet 15 MG PO BID for dvt, pe, #21 TAB Prov: JUAN PABLO MERCER MD 04/25/20 Dragon Disclaimer This chart was dictated in whole or in part using Voice Recognition software in a busy, high-work load, and often noisy Emergency Department environment. It may contain unintended and wholly unrecognized errors or omissions. Dragon Disclaimer This chart was dictated in whole or in part using Voice Recognition software in a busy, high-work load, and often noisy Emergency Department environment. It may contain unintended and wholly unrecognized errors or omissions. JUAN PABLO MERCER MD Apr 24, 2020 22:47
[2020-04-24] MEDS ORDERED: ALBUTEROL SULFATE 8GM INHALER. INH ONE (23:00)
[2020-04-24] MEDS ORDERED: IV RINGERS SOLUTION,LACTATED 1,000 ML IV SCH (23:00)
[2020-04-24] MEDS ORDERED: levoFLOXacin 500 MG TABLET PO ONE (23:00)
--- NOTE | 2020-04-24 23:46 | RAD ---
STUDY: CT head and cervical spine without contrast INDICATION: Fall. Syncope. Trauma to the head. COMPARISON: 08/25/2016 TECHNIQUE: Axial CT imaging through the head and cervical spine without the use of intravenous contrast. Sagittal and coronal reformats were obtained. One or more of the following individualized dose reduction techniques were utilized for this examination: 1. Automated exposure control 2. Adjustment of the mA and/or kV according to patient size 3. Use of iterative reconstruction technique. FINDINGS: CT head: No acute intracranial hemorrhage. Arroyo-white matter differentiation is maintained. No mass effect, midline shift or hydrocephalus. Patchy and confluent bihemispheric subcortical/periventricular white matter hypoattenuation is nonspecific but most frequently seen in the setting of chronic microvascular ischemic change. Parenchymal volume loss and intracranial atherosclerotic calcifications. No large scalp hematoma is apparent by CT. No depressed calvarial fracture. CT cervical spine: Limited evaluation below C5 due to beam attenuation. Taking the above into consideration, no acute fracture or traumatic malalignment. Partial opacification of the left mastoid air cells but no fracture seen in this region. Scattered degenerative changes with discogenic arthrosis most pronounced at C6-C7. Uncovertebral joint hypertrophy greatest at this level as well. Osseous neural foraminal encroachment most notable along the right more so than left at C6-C7. No severe central canal stenosis is readily apparent. No soft tissue sequela of trauma seen throughout the neck. Scattered vascular calcifications. No apical pneumothorax. IMPRESSION: CT head: 1. No acute intracranial abnormality by CT. 2. Chronic/senescent findings as detailed above. CT cervical spine: 1. No acute fracture. 2. Multifactorial degenerative changes greatest at C6-C7. Electronically signed by: CAYLA ORMERO MD (04/24/2020 11:43 PM) [id number]
--- NOTE | 2020-04-24 23:56 | RAD ---
AP chest x-ray HISTORY: Dyspnea, fever. COMPARISON: Chest x-ray January 30, 2019. FINDINGS: Mild cardiomegaly stable. Mediastinal silhouette is unremarkable. No pneumothorax, pulmonary opacities or pleural effusions. Old healed left rib fracture deformities again demonstrated. IMPRESSION: No acute process. Stable exam. Electronically signed by: Kvng Mackay MD (04/24/2020 11:53 PM) [facility]
[2020-04-25 01:12] LABS: CALCIUM 8.1 mg/dL (8.5-10.1); CREATININE 1.7 mg/dL (0.7-1.3); GFR 48.6; POTASSIUM 4.8 mmol/L (3.5-5.1)
[2020-04-25 01:26] LABS: CLARITY,URINE HAZY; COLOR,URINE AMBER
[2020-04-25 01:27] LABS: BACTERIA,URINE FEW /HPF (0-FEW); BILIRUBIN,URINE NEG (NEG); DIRECT BILIRUBIN 0.3 mg/dL (0.0-0.2); GLUCOSE,URINE 250 mg/dL (NEG); MAGNESIUM 2.1 mg/dL (1.8-2.4); NITRITE,URINE NEG (NEG); SQUAMOUS EPITHELIAL CELL,UR FEW /LPF; TOTAL BILIRUBIN 0.9 mg/dL (0.2-1.0); TOTAL PROTEIN 7.6 g/dL (6.4-8.2); WBC,URINE 0 /HPF (0-4)
[2020-04-25 01:28] LABS: AMORPHOUS SEDIMENT,UR PRESENT /HPF; BARBITURATES NEG (NEG); BENZODIAZEPINES NEG (NEG); CANNABINOIDS NEG (NEG); COCAINE NEG (NEG); METHADONE NEG (NEG); OPIATES NEG (NEG); PHENCYCLIDINE NEG (NEG)
[2020-04-25 01:32] LABS: BASO % 1 % (0-3); EOS % 0 % (0-3); HEMATOCRIT 43.5 % (39.0-53.0); HEMOGLOBIN 14.2 g/dL (13.0-17.5); LYMPH # 0.4 x10^3/uL (1.0-4.8); LYMPH % 10 % (24-48); MEAN CORPUSCULAR HEMOGLOBIN 33 pg (25-35); MEAN CORPUSCULAR HGB CONC 33 g/dL (31-37); MEAN CORPUSCULAR VOLUME 100 fL (79-100); MONO # 0.3 x10^3/uL (0.0-1.1); MONO % 8 % (0-9); NEUT # 3.3 x10^3uL (1.8-7.7); NEUT % 80 % (31-73); PLATELET COUNT 146 x10^3/uL (140-400); RED BLOOD COUNT 4.36 x10^6/uL (4.30-5.70); RED CELL DISTRIBUTION WIDTH 14.3 % (11.5-14.5); WHITE BLOOD COUNT 4.1 x10^3/uL (4.0-11.0)
[2020-04-25 01:41] LABS: AMPHETAMINE/METHAMPHETAMINE NEG (NEG)
--- NOTE | 2020-04-25 01:51 | EKG ---
[address] [address] Test Date: 2020-04-24 Test Time: 23:44:53 Pat Name: HECTOR ESQUIVEL Department: Room: Gender: M Technician Automatic: [place] : 1950 Requested By: JUAN PABLO MERCER Order Number: [id number] Reading MD: Measurements Intervals [place] Rate: 101 P: -27 [place]: 112 QRS: -25 QRSD: 102 T: 187 QT: 334 QTc: 434 Interpretive Statements SINUS TACHYCARDIA POSSIBLE LEFT ATRIAL ABNORMALITY LEFTWARD AXIS R-S TRANSITION ZONE IN V LEADS DISPLACED TO THE RIGHT T ABNORMALITY IN ANTERIOR LEADS ABNORMAL ECG RI6.02 No previous ECG available for comparison
[2020-04-25] MEDS ORDERED: AZITHROMYCIN 250 MG TABLET. PO ONE (02:30)
[2020-04-25] MEDS ORDERED: ENOXAPARIN ** NOTE DOSE ** SYRINGE SQ ONE ×2 (02:30→02:36)
[2020-04-25] MEDS ORDERED: RIVA15TA PO (02:37)
[2020-04-25] MEDS ORDERED: RIVA20TA2 PO (02:37)
[2020-04-25] MEDS ORDERED: AZIT250T PO (02:45)
[2020-04-25] MEDS ORDERED: ONDA8TAB9 PO (03:01)
[2020-04-25] MEDS ORDERED: ACETAMINOPHEN 500 MG TABLET PO ONE ×2 (03:22→03:45)
== END 2020-04-25 03:37 | disposition home or self-care (01) ==
LOC: ER 22:36
DX: B34.9 Viral infection, unspecified (principal); E87.1 Hypo-osmolality and hyponatremia; E11.22 Type 2 diabetes mellitus with diabetic chronic kidney disease; N18.9 Chronic kidney disease, unspecified; I10 Essential (primary) hypertension; R79.1 Abnormal coagulation profile; M19.90 Unspecified osteoarthritis, unspecified site; I25.10 Atherosclerotic heart disease of native coronary artery without angina pectoris; J44.9 Chronic obstructive pulmonary disease, unspecified; E78.00 Pure hypercholesterolemia, unspecified; G43.909 Migraine, unspecified, not intractable, without status migrainosus; Z20.828 Contact with and (suspected) exposure to other viral communicable diseases; Z88.8 Allergy status to other drugs, medicaments and biological substances; Z88.0 Allergy status to penicillin; Z88.2 Allergy status to sulfonamides; Z91.013 Allergy to seafood
CPT/HCPCS: 36415; 70450; 71045; 72125; 80048; 80076; 80307; 81001; 82550; 83605; 83690; 83735; 83880; 84443; 84484; 85025; 85379; 85610; 85730; 87040; 93005; 96360; 96361; 96372; 99285; J0456; J1650; J7120; J7613; U0003

== ENCOUNTER → 2021-06-08 | Outpatient (CLI) | payer MEDICARE, OTHER ==
[2020-04-25 03:30] VITALS: BP 140/70
[~2021-06-08] MED LIST changes: +AZIT250T PO; +CLIN-95 PO; -CLIN300C8 PO; +DONE-49 PO; -DONE10TA14 PO; -LISI-334 PO; -LISI2.5T PO; +LISI2.5T12 PO; +LISI20TA18 PO; +ONDA8TAB9 PO; +RIVA15TA PO; +RIVA20TA2 PO
--- NOTE | 2021-06-08 13:55 | RAD ---
PQRS Compliance Statement: One or more of the following individualized dose reduction techniques were utilized for this examinat ion: 1. Automated exposure control 2. Adjustment of the mA and/or kV according to patient size 3. Use of iterative reconstruction technique CT LOW DOSE LUNG SCREEN Clinical Indication: Reason: SMOKER FOR 40 YEARS OFF/ON. 07/24 PPD / Spl. Instructions: / History: Comparison: CT chests without contrast June 09, 2015. TECHNIQUE: Helical CT imaging of the chest is performed without IV contrast using low-dose technique. Findings: There is a 2.4 cm probable sebaceous cyst of the left of midline upper back subcutaneous fat. There i s no adenopathy in the chest, limited evaluation of the ricky without IV contrast. The great vessels a re normal caliber. There is three-vessel coronary artery disease. The cardiac size is normal, no mary cardial effusion. There is no pleural effusion. The central airways are patent. A noncalcified pulmonary nodule is not identified. The visualized upper abdomen is unremarkable. Old left posterior seventh rib fracture. Thoracic spine alignment is maintained. IMPRESSION: 1. No pulmonary nodule is identified. Continue annual screening with low-dose CT in 12 months. 2. Lung RADS category 1. Electronically signed by: Pedro Higginbotham MD (06/08/2021 1:53 PM) [facility]
== END ==
LOC: CT 13:10
PROVIDERS: ATTEND Specialist
DX: Z12.11 Encounter for screening for malignant neoplasm of colon (principal); I25.10 Atherosclerotic heart disease of native coronary artery without angina pectoris; F17.210 Nicotine dependence, cigarettes, uncomplicated; Z87.81 Personal history of (healed) traumatic fracture
CPT/HCPCS: 71271